=== PATIENT | male | born 1980 | race Caucasian/White ===

== ENCOUNTER 2018-09-21 11:01 | Emergency (ER) | payer OTHER ==
[~2018-09-21] VITALS: Ht 157.5 cm; Wt 81.7 kg
[~2018-09-21 11:01] MED LIST: CLARINEX-D 121 EACH PO; KEFLEX500 MG PO
[2018-09-21] MEDS ORDERED: OMEPRAZOLE20 MG PO (11:16)
[2018-09-21] MEDS ORDERED: BACTRIM DS TAB1 EACH PO (11:58)
[2018-09-21] MEDS ORDERED: KEFLEX500 MG PO (11:58)
== END 2018-09-21 12:14 | disposition home or self-care (01) ==
LOC: ED 11:01
DX: L03.116 Cellulitis of left lower limb (principal); Z79.899 Other long term (current) drug therapy
CPT/HCPCS: 99282

== ENCOUNTER 2020-11-23 11:04 | Emergency (ER) | payer OTHER ==
[~2020-11-23] VITALS: Ht 157.5 cm; Wt 81.7 kg
[~2020-11-23 11:04] MED LIST changes: +BACTRIM DS TAB1 EACH PO; +OMEPRAZOLE20 MG PO
[2020-11-23] MEDS ORDERED: CLOPIDOGREL75 MG PO (11:57)
[2020-11-23] MEDS ORDERED: LISINOPRIL5 MG PO (11:58)
[2020-11-23] MEDS ORDERED: ASPIRIN81 MG PO (11:59)
[2020-11-23] MEDS ORDERED: METOPROLOL SUCC25 MG PO (11:59)
[2020-11-23] MEDS ORDERED: JARDIANCE10 MG PO (11:59)
[2020-11-23] MEDS ORDERED: ATORVASTATIN CA80 MG PO (12:00)
[2020-11-23] MEDS ORDERED: METFORMIN HCL1000 MG PO (12:00)
[2020-11-23] MEDS ORDERED: OMEPRAZOLE20 MG PO (12:00)
== END 2020-11-23 13:18 | disposition home or self-care (01) ==
LOC: ED 11:04
DX: H61.22 Impacted cerumen, left ear (principal); I25.2 Old myocardial infarction; E11.9 Type 2 diabetes mellitus without complications; Z87.891 Personal history of nicotine dependence; Z79.899 Other long term (current) drug therapy; Z79.82 Long term (current) use of aspirin; Z79.84 Long term (current) use of oral hypoglycemic drugs
CPT/HCPCS: 69209; 99282-25

== ENCOUNTER 2021-09-01 10:42 | Emergency (ER) | payer OTHER ==
[~2021-09-01] VITALS: Ht 157.5 cm; Wt 81.7 kg
[~2021-09-01 10:42] MED LIST changes: +ASPIRIN81 MG PO; +ATORVASTATIN CA80 MG PO; +CLOPIDOGREL75 MG PO; +JARDIANCE10 MG PO; +LISINOPRIL5 MG PO; +METFORMIN HCL1000 MG PO; +METOPROLOL SUCC25 MG PO
[2021-09-01] MEDS ORDERED: OLMESARTAN MEDO20 MG PO (10:54)
[2021-09-01] MEDS ORDERED: OMEPRAZOLE40 MG PO (10:55)
[2021-09-01] MEDS ORDERED: LOSARTAN POTASS25 MG PO (10:55)
--- NOTE | 2021-09-01 22:09 | EKG ---
[facility] [address] [facility] [place], [place] [address] Signed Normal sinus rhythm Anterolateral infarct , age undetermined Abnormal ECG No previous ECGs available Confirmed by MERRY NAVARRO MD ([id number] on 09/01/2021 8:24:03 PM Electronically Signed By: MERRY NAVARRO MD 09/01/[id number] PATIENT NAME: CRISTINA LEYVA Electrocardiogram DATE OF : 78 PHYSICIAN: MERRY NAVARRO MD REPORT #: [id number] REPORT IS CONFIDENTIAL AND NOT TO BE RELEASED WITHOUT AUTHORIZATION
== END 2021-09-01 13:22 | disposition home or self-care (01) ==
LOC: ED 10:42
DX: R07.9 Chest pain, unspecified (principal); I25.2 Old myocardial infarction; E11.9 Type 2 diabetes mellitus without complications; Z87.891 Personal history of nicotine dependence; Z79.899 Other long term (current) drug therapy; Z79.82 Long term (current) use of aspirin; Z79.84 Long term (current) use of oral hypoglycemic drugs
CPT/HCPCS: 36415; 71045; 80048; 84484; 85025; 93005; 93010; 99285-25